=== PATIENT | female | born 1955 | race Caucasian/White ===

== ENCOUNTER → 2021-02-12 08:32 | Outpatient (CLI) | payer OTHER ==
[2020-11-18 11:22] VITALS: BMI 36.5
[~2021-02-12 08:32] MED LIST: LOPRESSOR25 MG PO; MEDROL DOSE PACK4 MG; MELATONIN 3 MG1 TAB PO; PROMETH-CODEIN 65 ML PO; PROTONIX40 MG PO; VENTOLIN HFA [SP8 GM INH; VITAMIN B-1100 M1 PO; VITAMIN C PO; VITAMIN D325 MC1 PO; ZITHROMAX250 MG PO; ZOCOR20 MG PO
== END | disposition home or self-care (01) ==
LOC: D.HCCARDIO 08:32
PROVIDERS: ATTEND Internal Medicine Cardiovascular Disease
DX: I20.9 Angina pectoris, unspecified (principal)